=== PATIENT | female | born 1955 | race Caucasian/White ===

== ENCOUNTER 2019-10-05 09:49 | Emergency (ER) | payer OTHER, SELFPAY ==
--- NOTE | 2019-10-05 09:57 | ED.GENADULT ---
HPI - General Adult General Chief complaint: Skin/Abscess/Foreign Body Stated complaint: insect bite Time Seen by Provider: 10/05/19 09:57 Source: patient Mode of arrival: ambulatory Limitations: no limitations History of Present Illness HPI narrative: 64-year-old female patient presents to the [facility] with complaints of wound area to her right forearm for the past 2 to 3 weeks. Patient states that the area is itchy. Patient states that it started off as what appeared to be like a small bite. Patient states it continues to be itchy and is painful at times when she touches it. Denies any discharge coming from the site. Denies any fevers, body aches or pains. Patient denies taking anything for the symptoms and denies putting anything on the rash. Related Data Home Medications Medication Instructions Recorded Confirmed fluoxetine mg 10/05/19 metoprolol succinate PO 10/05/19 trazodone 10/05/19 triamterene-hydrochlorothiazid tablet 10/05/19 Allergies Allergy/AdvReac Type Severity Reaction Status Date / Time erythromycin base Allergy Unknown Verified 10/17/17 14:10 Review of Systems Review of Systems: Narrative: CONSTITUTIONAL: Denies fever, chills, or sweats. EYES: Denies visual changes, redness, or discharge. ENT: Denies rhinorrhea, congestion, sore throat, or otalgia. CARDIOVASCULAR: Denies chest pain, palpitations, or edema. RESPIRATORY: Denies cough or dyspnea. GASTROINTESTINAL: Denies abdominal pain, nausea, vomiting, or diarrhea. GENITOURINARY: Denies dysuria or hematuria. SKIN: Positive rash with itching to right forearm x2 to 3 weeks. MUSCULOSKELETAL: Denies back pain, joint pain, or myalgia. NEUROLOGIC: Denies headache, numbness, or weakness. PSYCHIATRIC: Denies anxiety or depression. [facility] Past Medical History Medical History (Updated 10/05/19 @ 10:16 by JIMI Richmond) Chronic low back pain Depression Fibroids GERD (gastroesophageal reflux disease) Hypertension Family History Family History Father Family history of cardiovascular disease Social History Social History Smoking status: Never smoker Second hand tobacco smoke exposure: No Alcohol intake: current Comments At the time of my signature I agree with nursing past medical history, surgical, social, and family history. There is no relevant family history pertinent to the presenting complaint. Exam Narrative: Exam Narrative: GENERAL: Well-appearing, well-nourished, and in no acute distress. HEAD: Normocephalic, atraumatic. EYES: PERRLA and EOMI. ENT: Nares clear, no rhinorrhea or epistaxis. Mucous membranes moist. NECK: Supple. No lymphadenopathy CHEST: Clear to auscultation. No respiratory distress. HEART: Regular rate and rhythm. No murmur heard. Normal peripheral pulses. ABDOMEN: Soft, nontender, nondistended, normal active bowel sounds. EXTREMITIES: Normal range of motion. No edema. SKIN: Patient has approximately 1-1.5 circumcised plaque noted to the right forearm. There is no open wounds or drainage noted. There is no other rash noted on the arm or anywhere else on the body at this time. NEURO: No focal deficits. Alert and oriented x3. Course Vital Signs Vital signs: Vital Signs Temperature 37.2 C 10/05/19 10:00 Pulse Rate 75 10/05/19 10:00 Respiratory Rate 20 10/05/19 10:00 Blood Pressure 140/85 10/05/19 10:00 Pulse Oximetry 98 10/05/19 10:00 Temperature 37.2 C 10/05/19 10:00 Pulse Rate 75 10/05/19 10:00 Respiratory Rate 20 10/05/19 10:00 Blood Pressure 140/85 10/05/19 10:00 Pulse Oximetry 98 10/05/19 10:00 Vital signs reviewed. The patient has been informed that they may have pre-hypertension or Hypertension based on a BP reading in the department. I recommend that the patient call the primary care provider listed on their discharge instructions or a physi
[2019-10-05 10:00] VITALS: BP 140/85; PULSE 75; RESP 20; TEMP 37.2; O2SAT 98
== END 2019-10-05 10:25 | disposition home or self-care (01) ==
PROVIDERS: Emergency Provider Nurse Practitioner Family
DX: L30.9 Dermatitis, unspecified (principal); I10 Essential (primary) hypertension
CPT/HCPCS: 99213; G0463

== ENCOUNTER → 2020-08-01 08:00 | Outpatient (CLI) | payer OTHER, SELFPAY ==
--- NOTE | ~2020-08-01 | XR_ITS ---
EXAMINATION: XR hip LT min 2V DATE: 08/01/2020 08:16 INDICATION: Left hip pain. TECHNIQUE: 2 views of left hip were obtained. COMPARISON: None. FINDINGS: Bone alignment is normal. No fracture. There is moderate left hip osteoarthritis. IMPRESSION: 1. Moderate left hip osteoarthritis. Reviewed, dictated and finalized at location A.
== END ==
DX: M16.12 Unilateral primary osteoarthritis, left hip (principal)
CPT/HCPCS: 73502

== ENCOUNTER → 2020-09-25 12:28 | Outpatient (CLI) | payer OTHER, SELFPAY ==
--- NOTE | ~2020-09-25 | MM_ITS ---
EXAMINATION: MM screening neil BI w mark HISTORY: Screening TECHNIQUE: Craniocaudal and mediolateral oblique 3-D tomosynthesis images were obtained and synthetic 2-D images were generated. CAD analysis was submitted and interpreted. COMPARISON: 11/28/2017 BREAST PARENCHYMAL COMPOSITION: There are scattered areas of fibroglandular density. FINDINGS: There are developing asymmetries in the upper outer quadrants of both breasts. There are no suspicious calcifications. IMPRESSION: 1. Developing bilateral breast asymmetries. 2. Additional mammographic views and possible breast ultrasound are recommended. BI-RADS Category 0: Incomplete: Needs additional imaging evaluation. Reviewed, dictated and finalized at location A. IMPRESSION: 1. Developing bilateral breast asymmetries. 2. Additional mammographic views and possible breast ultrasound are recommended . BI-RADS Category 0: Incomplete: Needs additional imaging evaluation.
== END ==
PROVIDERS: Visit Provider Obstetrics & Gynecology
DX: Z12.31 Encounter for screening mammogram for malignant neoplasm of breast (principal); R92.8 Other abnormal and inconclusive findings on diagnostic imaging of breast
CPT/HCPCS: 77063; 77067

== ENCOUNTER → 2020-10-31 09:00 | Outpatient (CLI) | payer OTHER, SELFPAY ==
--- NOTE | ~2020-10-31 | MMUS_ITS ---
EXAMINATION: MM diagnostic neil BI w mark, US breast BI limited HISTORY: Breast asymmetries on screening mammogram TECHNIQUE: Additional 3-D tomosynthesis images of the breasts were performed and synthetic 2-D images were generated. CAD analysis was submitted and interpreted. High resolution limited bilateral breast ultrasound was performed. COMPARISON: 09/25/2020, 11/28/2017 BREAST PARENCHYMAL COMPOSITION: There are scattered areas of fibroglandular density. FINDINGS: MAMMOGRAPHIC FINDINGS: There is a return to baseline fibroglandular appearance with spot compression of the breasts in the a reas questioned on screening mammogram. ULTRASOUND: There is no evidence of focal abnormal solid or cystic mass in the vicinity of the mammographic findi ngs in question. IMPRESSION: 1. No mammographic or sonographic evidence of malignancy. 2. Recommend routine screening mammography in one year. BI-RADS Category 1: Negative Reviewed, dictated and finalized at location A. IMPRESSION: 1. No mammographic or sonographic evidence of malignancy. 2. Recommend routine screening mammography in one year. BI-RADS Category 1: Negative
== END ==
PROVIDERS: Visit Provider Obstetrics & Gynecology
DX: R92.2 Inconclusive mammogram (principal)
CPT/HCPCS: 76642; 77062; 77066; G0279

== ENCOUNTER → 2022-01-27 13:47 | Outpatient (CLI) | payer OTHER, SELFPAY ==
--- NOTE | ~2022-01-27 | MM_ITS ---
EXAMINATION: MM screening [facility] BI w mark HISTORY: Screening mammogram TECHNIQUE: Craniocaudal and mediolateral oblique 3-D tomosynthesis images were obtained and synthetic 2-D images were generated. CAD analysis was submitted and interpreted. COMPARISON: 10/31/2020, 09/25/2020, 11/28/2017 BREAST PARENCHYMAL COMPOSITION: There are scattered areas of fibroglandular density. FINDINGS: No suspicious mass, calcification, or architectural distortion are identified in either ashli ast to suggest malignancy. There has been no suspicious interval change. IMPRESSION: 1. No mammographic evidence of malignancy. 2. Recommend routine screening mammography in one year. BI-RADS Category 1: Negative Reviewed, dictated and finalized at location A.
== END ==
PROVIDERS: PCP Internal Medicine; Visit Provider Obstetrics & Gynecology
DX: Z12.31 Encounter for screening mammogram for malignant neoplasm of breast (principal)
CPT/HCPCS: 77063; 77067

== ENCOUNTER → 2022-02-16 13:18 | Outpatient (CLI) | payer OTHER, SELFPAY ==
--- NOTE | ~2022-02-16 | DEXA_ITS ---
Bone Density Report Name: NINFA JASON Age: 66 Sex: Female Ethnicity: White Date of : 1955 Indication: postmenopausal; screening for osteoporosis; height loss; Referring Provider: ANGELI DREW Study: Bone densitometry was performed. Exam Date: February 16, 2022 Accession number: [id number] Bone Density: Region BMD T-score Z-score Classification AP Spine (L1-L4) 1.182 1.2 3.0 Normal Femoral Neck (Left) 0.857 0.1 1.6 Normal Total Hip (Left) 1.017 0.6 1.8 Normal Femoral Neck (Right) 0.833 -0.1 1.4 Normal Total Hip (Right) 0.969 0.2 1.4 Normal Total Hip Mean 0.993 0.4 1.6 Normal World Health Organization criteria for BMD impression classify patients as: Normal (T-score at or above -1.0), Osteopenia (T-score between -1.0 and -2.5), or Osteoporosis (T-score at or below -2.5). 10-year Fracture Risk: FRAX not reported because: All T-scores for Spine Total, Hip Total, Femoral Neck at or above -1.0 Previous Exams: Region Exam Age BMD T-score BMD Change BMD Change Date g/cm2 vs Baseline vs Previous AP Spine(L1-L4) 02/16/2022 66 1.182 1.2 -0.055 -0.055 11/28/2017 62 1.237 1.7 Total Hip(Left) 02/16/2022 66 1.017 0.6 0.002 0.002 11/28/2017 62 1.016 0.6 Total Hip(Right) 02/16/2022 66 0.969 0.2 -0.033 -0.033 11/28/2017 62 1.002 0.5 *Denotes significance at 95% confidence level, LSC for AP Spine = 0.022 g/cm2, LSC for Total Hip = 0.027 g/cm2 Clinical Information Provided by Patient: Has used the following medications: Vitamin D Patient maximum height was 66 Menopause Age: 54 No regular weight bearing exercise Drinks caffeinated beverages Onset of menses at age 15 Number of children 1 Impression: The patient has normal bone mass. No significant bone loss was observed. Discussion: BONE DENSITY IS ABOVE THE MINIMUM DESIRABLE LEVEL AT ALL SKELETAL SITES TESTED. This patient?s bone mineral density is above the minimum desirable level (T-score -1.0 or better) at all sites measured. The patient should follow a healthful lifestyle (good nutrition with adequate calcium and vitamin D, and appropriate weight-bearing exercise). Follow-Up: Consider repeating this study in 5 years or sooner if there is some new clinical indication. Reported by: [facility] on 02/16/2022 1:40:00 PM. Reviewed, dictated and finalized at susan
== END ==
PROVIDERS: PCP Internal Medicine; Visit Provider Obstetrics & Gynecology
DX: Z78.0 Asymptomatic menopausal state (principal)
CPT/HCPCS: 77080

== ENCOUNTER → 2022-06-11 09:02 | Outpatient (CLI) | payer MEDICARE, SELFPAY ==
--- NOTE | ~2022-06-11 | MMUS_ITS ---
EXAMINATION: MM diagnostic neil LT w mark, US breast LT complete HISTORY: Left breast pain TECHNIQUE: ML, MLO and CC 3-D tomosynthesis images of the left breast were performed and synthetic 2- D images were generated. CAD analysis was submitted and interpreted. High resolution complete left br east ultrasound examination including all 4 quadrants and subareolar area was performed. COMPARISON: 01/27/2022 bilateral screening mammogram 10/31/2020 bilateral diagnostic mammography and Limited bilateral breast ultrasound examination 09/25/2020, 11/28/2017 bilateral screening mammogram examinations BREAST PARENCHYMAL COMPOSITION: There are scattered areas of fibroglandular density. FINDINGS: MAMMOGRAPHIC FINDINGS: No suspicious mass or architectural distortion, malignant calcification, skin thickening or retractio n or significant new or developing density is detected. ULTRASOUND: No suspicious mass or shadowing, cyst or other significant sonographic abnormality is noted. IMPRESSION: 1. No mammographic evidence malignancy 2. Routine annual mammographic screening is recommended. BI-RADS Category 1: Negative Reviewed, dictated and finalized at location A. [employer] IMPRESSION: 1. No mammographic evidence malignancy 2. Routine annual mammographic screening is recommended. BI-RADS Category 1: Negative
== END ==
PROVIDERS: PCP Obstetrics & Gynecology; Visit Provider Obstetrics & Gynecology
DX: N64.4 Mastodynia (principal)
CPT/HCPCS: 76641; 77061; 77065; G0279

== ENCOUNTER 2024-02-15 12:20 | Outpatient (CLI) | payer MEDICARE, SELFPAY ==
--- NOTE | ~2024-02-15 | MM_ITS ---
EXAMINATION: MM screening neil BI w mark HISTORY: Screening TECHNIQUE: Craniocaudal and mediolateral oblique 3-D tomosynthesis images were obtained and synthetic 2-D images were generated. CAD analysis was submitted and interpreted. COMPARISON: Comparison to multiple prior studies sequentially, with oldest reviewed study dated 09/2017. BREAST PARENCHYMAL COMPOSITION: Not dense: There are scattered areas of fibroglandular density. FINDINGS: There is no evidence of suspicious mass, calcification, or architectural distortion to sugg est malignancy in either breast. There has been no suspicious interval change. IMPRESSION: 1. No mammographic evidence of malignancy. 2. Recommend routine screening mammography in one year. BI-RADS Category 1: Negative Reviewed, dictated and finalized at location B.
== END 2024-02-15 12:21 | disposition home or self-care (01) ==
LOC: MICIMG 12:21
DX: Z12.31 Encounter for screening mammogram for malignant neoplasm of breast (principal)
CPT/HCPCS: 77063; 77067

== ENCOUNTER 2024-07-19 08:07 | Outpatient (CLI) | payer MEDICARE, SELFPAY ==
--- NOTE | ~2024-07-19 | DEXA_ITS ---
Bone Density Report Name: NINFA JASON Age: 69 Sex: Female Ethnicity: White Date of : 1955 Indication: postmenopausal; screening for osteoporosis; Referring Provider: UNKNOWN, UNKNOWN Study: Bone densitometry was performed. Exam Date: July 19, 2024 Accession number: [id number] Bone Density: Region BMD T-score Z-score Classification AP Spine(L1, L2, L3) 1.219 1.8 3.7 Normal Femoral Neck (Left) 0.841 -0.1 1.6 Normal Total Hip (Left) 1.030 0.7 2.1 Normal Femoral Neck (Right) 0.867 0.2 1.8 Normal Total Hip (Right) 1.002 0.5 1.8 Normal Total Hip Mean 1.016 0.6 2.0 Normal World Health Organization criteria for BMD impression classify patients as: Normal (T-score at or above -1.0), Osteopenia (T-score between -1.0 and -2.5), or Osteoporosis (T-score at or below -2.5). 10-year Fracture Risk: FRAX not reported because: All T-scores for Spine Total, Hip Total, Femoral Neck at or above -1.0 Clinical Information Provided by Patient: Has used the following medications: Vitamin D Patient maximum height was 66 Menopause Age: 57 No regular weight bearing exercise Drinks caffeinated beverages Onset of menses at age 15 Number of children 1 Impression: The patient has normal bone mass. Discussion: BONE DENSITY IS ABOVE THE MINIMUM DESIRABLE LEVEL AT ALL SKELETAL SITES TESTED. This patient?s bone mineral density is above the minimum desirable level (T-score -1.0 or better) at all sites measured. The patient should follow a healthful lifestyle (good nutrition with adequate calcium and vitamin D, and appropriate weight-bearing exercise). Follow-Up: Consider repeating this study in 5 years or sooner if there is some new clinical indication. Reported by: HANY on 07/19/2024 8:48:00 AM. Reviewed, dictated and finalized at location [facility]. [facility]
--- OUTSIDE RECORDS SUMMARY | 2024-07-19 08:13 | XMS_ITS ---
Author Organization [facility] aleisha Address [address] [place] [address] Care Team Providers Care Java Web User Interface Developer Name Role Phone zzzzMigration, zzzzProvider Unavailable Unav ailable REASON FOR VISIT EMR-Cirilo Encounters Encounter Location Date Provider Diagnosis [facility] [address] [place] [address] 02/12/2023 zzzzProvider zzzzMigration Plan Of Treatment No Information Progress Notes * Alisson LOPEZ LDOB: (69 yo F)Acc No.[id number]:02/12/2023 Patient: Perry MORSE Alisson Cohen :1955 A ge:67 Y S ex:Female Address:[address] [place] [id number] Subjective: * Chief Complaints: * E MR-Cirilo * Medical History: * Surgical History: * Hospitalization/Major Diagno stic Procedure: * Medications: Objective: * Vitals: * Physical Examination: Assessment: Plan: * Treatment: * Procedure Codes: * true * Date: Generated for Printi ng/Faxing/eTransmitting on: 0 07/19/2024 08:13 AM CDT
--- OUTSIDE RECORDS SUMMARY | 2024-07-19 08:13 | XMS_ITS | Clinical Summary ---
Author Organization [facility] Address [address] [facility] [facility] [place] [address] Care Team Providers Care Veneer Clipper Name Role Phone Ori James MD Primary Care Provider [phone] Brendan Enriquez MD Unavailable [phone] Allergies Active Allergy Reactions Criticality Noted Date Comments Erythromycin Unknown 01/06/2016 Medications mometasone (ELOCON) 0.1 % ointment Apply topically daily As needed to right forearm 45 g 2 Active buPROPion SR (WELLBUTRIN SR) 150 mg 12 hr tablet TAKE 1 TABLET BY MOUTH TWICE A DAY 200 tablet 1 4 Active atorvastatin (LIPITOR) 10 mg tablet TAKE 1 TABLET BY MOUTH EVERY DAY 100 tablet 1 4 Active triamterene-hyd roCHLOROthiazid e 37.5-25 mg per tablet/capsule TAKE 1 TABLET BY MOUTH EVERY DAY 90 tablet 1 5 Active metoprolol XL (TOPROL-XL) 50 mg extended release tablet TAKE 1 TABLET BY MOUTH EVERY DAY 90 tablet 1 5 Active FLUoxetine (PROzac) 20 mg capsule TAKE 1 CAPSULE BY MOUTH EVERY DAY IN THE MORNING 90 capsule 1 5 Active levothyroxine (SYNTHROID) 25 mcg tablet TAKE 1 TABLET BY MOUTH EVERY DAY 100 tablet 1 5 Active colchicine (COLCRYS) 0.6 mg tablet Take 1 tablet (0.6 mg total) by mouth 2 (two) times a day 30 tablet 1 02/27/202 5 06/21/19 26 Active Active Problems Problem Noted Date Diagnosed Date Primary hyperparathyroidism 03/15/2024 Recurrent major depressive disorder, in full rem ission 06/23/2020 Assessment & Plan (06/23/2020 11:15 PM ASSEMBLER EQUIPMENT): Since her symptoms are improving and stable, Decrease Prozac 20 mg daily and monitor. Hip pain, left 06/23/2020 Assessment & Plan (06/23/2020 11:15 PM ASSEMBLER EQUIPMENT): Patient has tenderness along the left trochanteric bursa. She also has pain on the left groin. This is likely due to arthritis. Check x-ray. Hair loss 06/23/2020 Assessment & Plan (06/23/2020 11:15 PM ASSEMBLER EQUIPMENT): Check thyroid function test Screening for breast cancer 04/08/2019 Assessment & Plan (06/23/2020 11:16 PM ASSEMBLER EQUIPMENT): Check annual mammogram Class 1 obesity due to exces s calories without serious comorbidity with body mass index (BMI) of 33.0 to 33.9 in adult 03/07/2018 Assessment & Plan (07/13/2019 8:57 AM CDT): Discussed healthy lifestyle exercise and diet to try promote better health and help manage her depression anxiety as much as her blood pressure Assessment & Plan (03/07/2018 12:06 PM ASSEMBLER EQUIPMENT): .BMI Follow-up includes: nutrition counseling and exercise counseling. Routine health maintenance 03/07/2018 Overview (06/23/2020): 11/2017: Dr Joseph, colonoscopy Assessment & Plan (06/23/2020 11:19 PM ASSEMBLER EQUIPMENT): She is due for Pap test, recommend annual mammogram. Last colonoscopy was 11/2017 recheck in 2027. Check labs. She is due for tetanus and shingles vaccine. Recommend regular exercise and healthy diet. Assessment & Plan (03/07/2018 11:36 AM ASSEMBLER EQUIPMENT): Life style, exerise and diet were reviewed with the patient, along with ideal body weight. Use of caffeine and alcohol were discussed. Medications, compliance and pertinent adverse drug effects were reviewed. Health maintenance matters were discussed and are now up to date. Osteoarthritis of multiple joints 03/07/2018 Assessment & Plan (03/07/2018 11:41 AM ASSEMBLER EQUIPMENT): Can continue inversion table and aleve. Weight loss discussed. Encounter for hepatitis C sc reening test for low risk patient 03/07/2018 Assessment & Plan (03/07/2018 11:42 AM ASSEMBLER EQUIPMENT): Screening per guidelines Hypertension 01/21/2014 Overview (07/31/2016): Hypertension Assessment & Plan (06/23/2020 11:16 PM ASSEMBLER EQUIPMENT): Blood pressure is stable, continue metoprolol, triamterene hydrochlorothiazide daily. Assessment & Plan (07/13/2019 8:57 AM CDT): Monitor blood pressure, doubt her brief chest discomfort was related to her cardiac condition given circumstances can use famotidine regularly. Call if her chest discomfort is 6 0 should with any exertion or with other cardiac symptoms including lightheadedness, diaphoresis, shortness of breath, nausea, palpitation Assessment & Plan (03/07/2018 12:10 PM ASSEMBLER EQUIPMENT): Relatively well controlled on current medication Assessment & Plan (12/17/2016 2:42 PM CDT): Hypertension is doing great she continue to lose weight will consider cutting back medication next visit Depression with anxiety 01/21/2014 Overview (07/31/2016): Depression Assessment & Plan (07/13/2019 8:56 AM CDT): Increasing Prozac to 30 mg a day, starting trazodone 50 mg q.h.s. for insomnia depression. Can take 25 mg during the day if severely anxious Assessment & Plan (03/07/2018 12:09 PM ASSEMBLER EQUIPMENT): Discussed relapsing depression context of her 's . She is appropriately seeking counseling and try staying engaged in life. Recommend she increase Prozac gently adding 2 pills a week, relatively safe given its long half life to bring average level up from 20 to 25 mg. She will decide from there whether to increase further after calling me. Assessment & Plan (12/17/2016 2:42 PM CDT): Psychological condition is very stable. She is retiring after this year may consider cutting back Prozac to see if it is still really necessary Resolved Problems Problem Noted Date Diagnosed Date Resolved Date Cough 03/07/2018 04/08/2019 Assessment & Plan (03/07/2018 12:09 PM ASSEMBLER EQUIPMENT): Awaiting blood test, starting doxycycline for prolonged bronchitis Epigastric pain 12/17/2016 04/08/2019 Assessment & Plan (03/07/2018 12:10 PM ASSEMBLER EQUIPMENT): Unclear if this is her gallbladder or more related to GERD. Empiric trial of Prilosec for 3 weeks and go to double dose H2 blockers if this is not help will proceed with further testing. Have advised if she is having a gallbladder problem it is imperative should lose weight Assessment & Plan (12/17/2016 2:42 PM CDT): Description is most consistent with a biliary source including stones or dyskinesis. CT exclude given location of pain esophageal spasm or high ulcer. Starting with gallbladder ultrasound if negative will consider HIDA scan and endoscopy. In interim start back on Zantac. Since she is entirely asymptomatic last several days have not ordered blood test Encounters Date Type Department Care Team Description 06/21/2024 Orders Only [facility] [address] [facility] [address] [place] [id number] Ori James MD from Last 3 Months Immunizations Immunization Administration Dates Next Due Influenza, Quad, Adjuvantate d, Intramuscular 05/02/2023 Influenza, Quadrivalent, Spl it, Preservative Free, Intramuscular 03/04/2022,03/10/2021,02/18/2020 Influenza, Unspecified 01/23/2018,01/23/2017 Tdap 11/21/2023 Medical History Medical History Date Comments Depression 1998 Hypertension Family History Medical History Relation Name Comments Alcohol abuse Father Radhames Zhou COPD Father Radhames Zhou Cancer Father Radhames Zhou Mental illness Father Radhames Zhou Hearing loss Mother Vy Zhou Relation Name Status Comments Father Radhames Zhou Mother Vy Zhou Social History Tobacco Use Types Packs/Day Years Used Date Smoking Tobacco: Never Cigarettes Smokeless Tobacco: Never Tobacco Cessation:Counseling Given: Not Answered AUDIT-C Answer Date Recorded Q1: How often do you have a drink containing alc ohol? 2-4 times a month 12/19/2023 Q2: How many drinks containi ng alcohol do you have on a typical day when you are drinking? 1 or 2 12/19/2023 Q3: How often do you have si x or more drinks on one occasion? Never 12/19/2023 PHQ-2 Answer Date Recorded PHQ-2 Total Score (If total score is 3 or more points, staff should administer the PHQ-9) 0 12/19/2023 Comments Unknown Sex and Gender Information Value Date Recorded Sex Assigned at Not on file Legal Sex Female 5:20 PM ASSEMBLER EQUIPMENT Gender Identity Female 12/04/2022 4:39 PM CDT Sexual Orientation Not on file Occupation Industry Job Start Date Job End Date Teacher, computer, retired 2017 Not on file Not on fi le Not on file Son and his girlfriend lives with her Not on file Not on file Not on file Obstetrics History Last Filed Vital Signs Vital Sign Reading Time Taken Comments Blood Pressure 136/84 04/10/2024 7:36 PM ASSEMBLER EQUIPMENT Pulse 111 04/10/2024 7:36 PM ASSEMBLER EQUIPMENT Temperature 37.9 C (100.2 F) 04/10/2024 7:36 PM ASSEMBLER EQUIPMENT Respiratory Rate 20 04/10/2024 7:36 PM ASSEMBLER EQUIPMENT Oxygen Saturation 97% 04/10/2024 7:36 PM ASSEMBLER EQUIPMENT Inhaled Oxygen Concentration - - Weight 93.4 kg (206 lb) 04/10/2024 7:36 PM ASSEMBLER EQUIPMENT Height 167.6 cm (5' 6 ) 04/10/2024 7:36 PM ASSEMBLER EQUIPMENT Body Mass Index 33.25 04/10/2024 7:36 PM ASSEMBLER EQUIPMENT Plan of Treatment Health Maintenance Due Date Last Done Comments Osteoporosis Screening-Bone Density Scan 1955 Hepatitis B Screening 1975 Pneumococcal vaccine 65+ (1 of 1 - PCV) 2007 Zoster Vaccine (2 of 2) 07/21/2024 05/26/2024 Covid-19 Vaccine (7 - 2023-2 5 season) 2024 02/26/2024, 04/23/2023, 11/04/2021, Additional history exists Depression Screening 12/22/2024 12/23/2023, 12/06/2022, 11/16/2021, Additional history exists Fall Risk Assessment 12/22/2024 12/23/2023, 12/06/2022, 11/16/2021, Additional history exists Well Visit 65+ 12/22/2024 12/23/2023, 11/23, 11/16/2021, Additional history exists Breast Cancer Screening-Mammogram 02/14/2025 02/15/2024, 01/27/2022, 10/31/2020, Additional history exists Colon Cancer Screening-Colonoscopy 11/24/2027 11/23/2017 DTaP/Tdap/Td Vaccine (2 - Td or Tdap) 11/20/2033 11/21/2023 Colon Cancer Screening-CT Colonography Discontinued 11/23/2017 Colon Cancer Screening-DNA Stool Discontinued 11/24/19 18 Colon Cancer Screening-FIT Discontinued 11/23/2017 Colon Cancer Screening-Sigmoidoscopy Discontinued 11/23/2017 Hepatitis C Screening Completed 03/07/2018 Influenza Vaccine Completed 03/28/2024, , 03/04/2022, Additional history exists Procedures Procedure Name Priority Date/Time Associated Diagnosis Comments SCREENING MAMMOGRAM 2D BILATERAL Schedule Routine, Read Routine (OP Routine) 02/15/2024 HEPATITIS C ANTIBODY Routine 03/07/2018 11:44 AM ASSEMBLER EQUIPMENT Encounter for hepatitis C screening test for low risk patient COLONOSCOPY Routine 11/23/2017 from Last 3 Months or Most Recently Relevant to Health Maintenance Results * Screening Mammogram 2D Bilateral (02/15/2024) Anatomical Region Laterality Modality Breast Bilateral Mammography us Historical Provider MD IMG MAMMO PROCEDURES Padmaja l Result * Hepatitis C antibody (03/07/2018 11:44 AM ASSEMBLER EQUIPMENT) Pathologist [facility] Hep C Ab Non-Reactiv e Non-Reactiv e [facility] Blood specimen (specimen) 03/07/2018 11:44 AM ASSEMBLER EQUIPMENT 03/07/2018 3:45 PM ASSEMBLER EQUIPMENT Narrative [facility] - 03/07/2018 4:48 PM ASSEMBLER EQUIPMENT Oral Elliott MD LAB MICROBIOLOGY - GENER AL ORDERABLES Final Result [facility] [address] Department [place] [address] * COLONOSCOPY (11/23/2017) Pathologist [facility] Colonoscopy Unknown Historical Provider HEALTH MAINTENANCE Final Result from Last 3 Months or Most Recently Relevant to Health Maintenance Insurance T MEDICARE T MEDICARE [facility] MEDIC[facility] Care Teams Veneer Clipper Relationship Specialty Start Date End Date Ori James MD [address] [facility] [address], [place] [address] PCP - General Internal Medicine 11/17/21 Brendan Enriquez MD [address] [facility] [address] [facility] [address] [place] [address] Referring Physician Obstetrics and Gynecology 12/06/22
--- OUTSIDE RECORDS SUMMARY | 2024-07-19 08:13 | XMS_ITS | Patient Health Record ---
Author Organization [facility] Address [address] [facility] [address] [place] [address] Support Name Relationship Address Phone Alisson Lopez Guarantor Unknown [phone] Reason For Referral No Information Plan Of Treatment No Information Insurance Providers Payer Name Payer Address Payer Phone Subscriber Number Group Number Insured Name Patient Relationship to Insured Coverage Start Date Coverage End Date [employer] [address] [place] Arshad [id number] Alisson Lopez Self - patient is the insured 6
--- OUTSIDE RECORDS SUMMARY | 2024-07-19 08:13 | XMS_ITS | Referral Summary ---
Author Organization [facility] Address [address] [facility] [place] [address] Care Team Providers Care Recording Studio Set Up Worker Name Role Phone Ori James MD Primary Care Provider [phone] Brendan Enriquez MD Unavailable [phone] Encounters Date Type Department Care Team Description 06/21/2024 Orders Only [facility] [address] [facility] [address] [address] Ori James MD from Last 3 Months Allergies Active Allergy Reactions Criticality Noted Date [...] (two) times a day 30 tablet 1 5 06/21/19 26 Active Active Problems Problem Noted Date Diagnosed Date Primary hyperparathyroidism 03/15/2024 Recurrent major depressive disorder, in full rem ission 06/23/2020 Assessment & Plan (06/23/2020 11:15 PM POST ANESTHESIA CARE UNIT NURSE): Since her symptoms are improving and stable, Decrease Prozac 20 mg daily and monitor. Hip pain, left 06/23/2020 Assessment & Plan (06/23/2020 11:15 PM POST ANESTHESIA CARE UNIT NURSE): Patient has tenderness along the left trochanteric bursa. She also has pain on the left groin. This is likely due to arthritis. Check x-ray. Hair loss 06/23/2020 Assessment & Plan (06/23/2020 11:15 PM POST ANESTHESIA CARE UNIT NURSE): Check thyroid function test Screening for breast cancer 04/08/2019 Assessment & Plan (06/23/2020 11:16 PM POST ANESTHESIA CARE UNIT NURSE): Check annual mammogram Class 1 obesity due to exces s calories without serious comorbidity with body mass index (BMI) of 33.0 to 33.9 in adult 03/07/2018 Assessment & Plan (07/13/2019 8:57 AM CDT): Discussed healthy lifestyle exercise and diet to try promote better health and help manage her depression anxiety as much as her blood pressure Assessment & Plan (03/07/2018 12:06 PM POST ANESTHESIA CARE UNIT NURSE): .BMI Follow-up includes: nutrition counseling and exercise counseling. Routine health maintenance 03/07/2018 Overview (06/23/2020): 11/2017: Dr Joseph, colonoscopy Assessment & Plan (06/23/2020 11:19 PM POST ANESTHESIA CARE UNIT NURSE): She is due for Pap test, recommend annual mammogram. Last colonoscopy was 11/2017 recheck in 2027. Check labs. She is due for tetanus and shingles vaccine. Recommend regular exercise and healthy diet. Assessment & Plan (03/07/2018 11:36 AM POST ANESTHESIA CARE UNIT NURSE): Life style, exerise and diet were reviewed with the patient, along with ideal body weight. Use of caffeine and alcohol were discussed. Medications, compliance and pertinent adverse drug effects were reviewed. Health maintenance matters were discussed and are now up to date. Osteoarthritis of multiple joints 03/07/2018 Assessment & Plan (03/07/2018 11:41 AM POST ANESTHESIA CARE UNIT NURSE): Can continue inversion table and aleve. Weight loss discussed. Encounter for hepatitis C sc reening test for low risk patient 03/07/2018 Assessment & Plan (03/07/2018 11:42 AM POST ANESTHESIA CARE UNIT NURSE): Screening per guidelines Hypertension 01/21/2014 Overview (07/31/2016): Hypertension Assessment & Plan (06/23/2020 11:16 PM POST ANESTHESIA CARE UNIT NURSE): Blood pressure is stable, continue metoprolol, triamterene [...] palpitation Assessment & Plan (03/07/2018 12:10 PM POST ANESTHESIA CARE UNIT NURSE): Relatively well controlled on current medication Assessment [...] anxious Assessment & Plan (03/07/2018 12:09 PM POST ANESTHESIA CARE UNIT NURSE): Discussed relapsing depression context of her 's [...] 04/08/2019 Assessment & Plan (03/07/2018 12:09 PM POST ANESTHESIA CARE UNIT NURSE): Awaiting blood test, starting doxycycline for prolonged bronchitis Epigastric pain 12/17/2016 04/08/2019 Assessment & Plan (03/07/2018 12:10 PM POST ANESTHESIA CARE UNIT NURSE): Unclear if this is her gallbladder or [...] several days have not ordered blood test Immunizations Immunization Administration Dates Next Due Influenza, Quad, Adjuvantate d, Intramuscular 05/02/2023 Influenza, Quadrivalent, Spl it, Preservative Free, Intramuscular 03/04/2022,03/10/2021,02/18/2020 Influenza, Unspecified 01/23/2018,01/23/2017 Tdap 11/21/2023 Social History Tobacco Use Types Packs/Day Years [...] on file Legal Sex Female 5:20 PM POST ANESTHESIA CARE UNIT NURSE Gender Identity Female 12/04/2022 4:39 PM CDT Sexual Orientation Not on file Occupation Industry Job Start Date Job End Date Teacher, computer, retired 2017 Not on file Not on fi le Not on file Son and his girlfriend lives with her Not on file Not on file Not on file Last Filed Vital Signs Vital Sign Reading Time Taken Comments Blood Pressure 136/84 04/10/2024 7:36 PM POST ANESTHESIA CARE UNIT NURSE Pulse 111 04/10/2024 7:36 PM POST ANESTHESIA CARE UNIT NURSE Temperature 37.9 C (100.2 F) 04/10/2024 7:36 PM POST ANESTHESIA CARE UNIT NURSE Respiratory Rate 20 04/10/2024 7:36 PM POST ANESTHESIA CARE UNIT NURSE Oxygen Saturation 97% 04/10/2024 7:36 PM POST ANESTHESIA CARE UNIT NURSE Inhaled Oxygen Concentration - - Weight 93.4 kg (206 lb) 04/10/2024 7:36 PM POST ANESTHESIA CARE UNIT NURSE Height 167.6 cm (5' 6 ) 04/10/2024 7:36 PM POST ANESTHESIA CARE UNIT NURSE Body Mass Index 33.25 04/10/2024 7:36 PM POST ANESTHESIA CARE UNIT NURSE Plan of Treatment Not on file Procedures Procedure Name Priority Date/Time Associated Diagnosis Comments SCREENING MAMMOGRAM 2D BILATERAL Schedule Routine, Read Routine (OP Routine) 02/15/2024 HEPATITIS C ANTIBODY Routine 03/07/2018 11:44 AM POST ANESTHESIA CARE UNIT NURSE Encounter for hepatitis C screening test for low risk patient COLONOSCOPY Routine 11/23/2017 from Last 3 Months or Most Recently Relevant to Health Maintenance Results * Screening Mammogram 2D Bilateral (02/15/2024) Anatomical Region Laterality Modality Breast Bilateral Mammography Historical Provider IMG MAMMO PROCEDURES Padmaja l Result * Hepatitis C antibody (03/07/2018 11:44 AM POST ANESTHESIA CARE UNIT NURSE) Hep C Ab Non-Reactiv e Non-Reactiv e [facility] Blood specimen (specimen) 03/07/2018 11:44 AM POST ANESTHESIA CARE UNIT NURSE 03/07/2018 3:45 PM POST ANESTHESIA CARE UNIT NURSE Narrative [facility] - 03/07/2018 4:48 PM POST ANESTHESIA CARE UNIT NURSE Oral Elliott MD LAB MICROBIOLOGY - GENER AL ORDERABLES Final Result Performing Organization Address City/State/[facility] Co de Phone Number [facility] [address] [place] [address] * COLONOSCOPY (11/23/2017) Colonoscopy Unknown Historical Provider HEALTH MAINTENANCE Final Result from Last 3 Months or Most Recently Relevant to Health Maintenance Insurance [facility] MEDICARE [employer] MEDICARE AETNA MEDICARE Care Teams Recording Studio Set Up Worker Relationship Specialty Start Date End Date Ori James MD [address] [address] PCP - General Internal Medicine 11/17/21 Brendan Enriquez MD [address] [address] Referring Physician Obstetrics and Gynecology 12/06/22
--- OUTSIDE RECORDS SUMMARY | 2024-07-19 08:13 | XMS_ITS | Clinical Summary ---
Author Organization [facility] Address [address] [place] [address] Care Team Providers Care Harness Placer Name Role Phone Brianne Rojo MD Primary Care Provider [phone] Allergies No known active allergies Social History Tobacco Use Types Packs/Day Years Used Date Smoking Tobacco: Never Assessed Comments No Sex and Gender Information Value Date Recorded Sex Assigned at Not on file Legal Sex Female 11:13 AM SECTION 8 PROPERTY MANAGER Gender Identity Not on file Sexual Orientation Not on file Last Filed Vital Signs Vital Sign Reading Time Taken Comments Blood Pressure 160/85 05/15/2021 11:36 AM SECTION 8 PROPERTY MANAGER Pulse 60 05/15/2021 11:36 AM SECTION 8 PROPERTY MANAGER Temperature 36.6 C (97.9 F) 05/15/2021 11:36 AM SECTION 8 PROPERTY MANAGER Respiratory Rate 16 05/15/2021 11:36 AM SECTION 8 PROPERTY MANAGER Oxygen Saturation 100% 05/15/2021 11:36 AM SECTION 8 PROPERTY MANAGER Inhaled Oxygen Concentration - - Weight 72.6 kg (160 lb) 05/15/2021 11:36 AM SECTION 8 PROPERTY MANAGER Height 167.6 cm (5' 6 ) 05/15/2021 11:36 AM SECTION 8 PROPERTY MANAGER Body Mass Index 25.82 05/15/2021 11:36 AM SECTION 8 PROPERTY MANAGER Plan of Treatment Health Maintenance Due Date Last Done Comments Colorectal Cancer Screening Colonoscopy (10 Years) 1957 Hepatitis C 1975 DTaP, Tdap and Td Vaccines (1 - Tdap) 1976 Mammogram Screening 1997 Zoster Vaccines (1 of 2) 2007 Dexa Scan (General) 2022 Pneumococcal Vaccine: 65+ Years (1 of 1 - PCV) 2022 COVID-19 Vaccine ( season) 2023 03/12/2021, 08/12/2020, 07/15/2020 Influenza Adult (#1) 2024 03/10/2021, 02/18/2020, 01/23/2018, Additional history exists RSV Immunization or 60+ Years (1 - 1-dose 75+ series) 2032 Meningococcal B Vaccine Aged Out No l onger eligible based on patient's age to complete this topic Meningococcal Vaccine Aged Out No sterling mayela eligible based on patient's age to complete this topic RSV Immunizations Under 20 Months Aged Out No longer eligible based on patient's age to complete this topic Insurance [employer] [facility] Care Teams Harness Placer Relationship Specialty Start Date End Date Brianne Rojo MD [address] [place] [address] PCP - General FAMILY PRACTICE 05/15/21
--- OUTSIDE RECORDS SUMMARY | 2024-07-19 08:13 | XMS_ITS ---
Author Organization [facility] Address [address] [facility] [address] [address] Care Team Providers Care City Carrier Assistant Name Role Phone zzzzMigration, zzzzProvider Unavailable Unav ailable Allergies Allergen (clinical drug ingredient) Drug/Non Drug Allergy documented on EMR Reaction Allergy Type Onset Date Status erythromycin Erythromycin Unknown Drug Allergy 01/06/2016 Active REASON FOR VISIT EMR-Cirilo Encounters Encounter Location Date Provider Diagnosis [facility] [address] [facility] [address] [address] 02/13/2023 zzzzProvider zzzzMigration Plan Of Treatment No Information Progress Notes * Alisson LOPEZ LDOB: (69 yo F)Acc No.[id number]:02/13/2023 Patient: Alisson ALEMAN :1955 A ge:67 Y S ex:Female Address:[address] [place] [id number] Subjective: * Chief Complaints: * E MR-Cirilo * Medical History: * Surgical History: * Hospitalization/Major Diagno stic Procedure: * Family History: F ather: Heart Disease . M igrated Family History: Cancer , Father . P aternal Grandfather: Grandfather (paternal): Diabetes . M aternal Grandfather: Grandfather (maternal): Diabetes . * Social History: M igrated Social History: M igrated Social History: Marital Status :: , Substance Use :: Alcohol :: Current some day :: note : Use status used: Current some day , Substance Use :: Tobacco :: Never. * Medications: * Allergies: E rythromycin: Allergy - Onset Date 01/06/2016 Objective: * Vitals: * Physical Examination: Assessment: Plan: * Treatment: * Procedure Codes: * true * Date: Generated for Pippa Jones/Fara on: 0 07/19/2024 08:13 AM CDT
== END 2024-07-19 08:08 | disposition home or self-care (01) ==
DX: Z78.0 Asymptomatic menopausal state (principal)
CPT/HCPCS: 77080